=== PATIENT | male | born 2000 | race Hispanic/Latino ===

== ENCOUNTER 2020-05-03 11:32 | Emergency (ER) | payer OTHER ==
[~2020-05-03] VITALS: Ht 177.8 cm; Wt 109.0 kg
[2020-05-03] MEDS ORDERED: ULTRAM50 M1 PO (13:17)
[2020-05-03 14:32] VITALS: BP 148/79
== END 2020-05-03 14:36 | disposition home or self-care (01) | DRG 605 ==
LOC: ED 11:32
DX: S80.212A Abrasion, left knee, initial encounter (principal); S80.11XA Contusion of right lower leg, initial encounter; S00.93XA Contusion of unspecified part of head, initial encounter; S13.9XXA Sprain of joints and ligaments of unspecified parts of neck, initial encounter; I10 Essential (primary) hypertension; V59.40XA Driver of pick-up truck or van injured in collision with unspecified motor vehicles in traffic accident, initial encounter